=== PATIENT | male | born 1960 | race Caucasian/White ===

== ENCOUNTER 2022-07-29 16:44 | Emergency (ER) | payer OTHER ==
[~2022-07-29] VITALS: Ht 177.8 cm; Wt 117.9 kg
== END 2022-07-29 21:03 | disposition home or self-care (01) ==
LOC: ER 16:44
DX: K40.90 Unilateral inguinal hernia, without obstruction or gangrene, not specified as recurrent (principal); Z88.8 Allergy status to other drugs, medicaments and biological substances
CPT/HCPCS: 36415; 76857; A9270; J3010

== ENCOUNTER 2022-08-11 10:39 | Day surgery (SDC) | payer OTHER ==
[~2022-08-11] VITALS: Ht 175.3 cm; Wt 120.9 kg
[~2022-08-11 10:39] MED LIST: ALEVAZOL56.7 G1 TOP; AMLO10 PO; ATOR20 PO; Acerola C500 MG PO; Acetaminophen650 M1 PO; CARV25 PO; CIDAFLEX TABLE1 EACH PO; LISI5 PO; MULVITA PO; [UNRECOGNIZED DRUG - OTHER] TOP
--- NOTE | 2022-08-11 11:56 | NUR ---
History, Chart, Medications and Allergies reviewed before start of procedure. Lungs clear T/O to Auscultation. Pre-Op teaching done. Pt verbalizes understanding.
--- NOTE | 2022-08-11 17:13 | NUR ---
DISCHARGE NOTE PT VSS, A&OX4, NO NAUSEA. PT [facility] PER DR DEL RIO. Discharge instructions reviewed with patient. Patient verbalizes understanding. Copy given to patient to take home. Dressing to procedure site clean, dry, intact with no visible drainage, swelling, erythema or bruising noted.
== END 2022-08-11 17:00 | disposition home or self-care (01) ==
LOC: ORSCMMR 10:39 → ORD 12:30 → ORSCMMR 12:30
PROVIDERS: Surgery
PROC: 0YU54JZ Supplement Right Inguinal Region with Synthetic Substitute, Percutaneous Endoscopic Approach (ICD-10-PCS; principal; 2022-08-11 12:30)
PROC: 8E0W4CZ Robotic Assisted Procedure of Trunk Region, Percutaneous Endoscopic Approach (ICD-10-PCS; principal; 2022-08-11 12:30)
PROC: 0WQF0ZZ Repair Abdominal Wall, Open Approach (ICD-10-PCS; principal; 2022-08-11 12:30)
PROC: 3E0M45Z Introduction of Adhesion Barrier into Peritoneal Cavity, Percutaneous Endoscopic Approach (ICD-10-PCS; principal; 2022-08-11 12:30)
DX: K40.90 Unilateral inguinal hernia, without obstruction or gangrene, not specified as recurrent (principal); K42.9 Umbilical hernia without obstruction or gangrene; I10 Essential (primary) hypertension; E78.5 Hyperlipidemia, unspecified; I25.2 Old myocardial infarction; E66.9 Obesity, unspecified; Z68.39 Body mass index [BMI] 39.0-39.9, adult; Z79.899 Other long term (current) drug therapy
CPT/HCPCS: 49650; 49591; S2900; A9270; C1781; J0690; J1100; J1170; J2250; J2405; J2704; J2795; J3010; J7120